=== PATIENT | male | born 1995 | race Caucasian/White ===

== ENCOUNTER 2016-08-04 12:53 | Emergency (ER) | payer OTHER ==
[~2016-08-04] VITALS: Ht 180.3 cm; Wt 65.3 kg
[2016-08-04 14:31] VITALS: BP 109/48
== END 2016-08-04 14:31 | disposition home or self-care (01) ==
LOC: ED 12:53
DX: S43.402A Unspecified sprain of left shoulder joint, initial encounter (principal); W54.0XXA Bitten by dog, initial encounter; Y93.89 Activity, other specified; Y92.096 Garden or yard of other non-institutional residence as the place of occurrence of the external cause; Y99.8 Other external cause status